=== PATIENT | male | born 1985 | race Caucasian/White ===

== ENCOUNTER 2016-09-09 19:17 | Inpatient (IN) | payer MEDICARE, MEDICAID ==
[~2016-09-09] VITALS: Ht 170.2 cm; Wt 73.5 kg
[~2016-09-09 19:17] MED LIST: LURA40 PO
[2016-09-10 04:00] VITALS: BP 137/86
[2016-09-10] MEDS ORDERED: HALOPERIDOL 5 MG TABLET PO PRN (04:15)
[2016-09-10 05:42] VITALS: BP 126/87
[2016-09-10] MEDS ORDERED: INFLUENZA VIRUS VACCINE QVS 2016-17 (3YR+)/PF 60 MCG/0.5 ML SYRINGE IM ONE (05:45)
[2016-09-10 08:58] VITALS: BP 118/72
[2016-09-10] MEDS: NICOTINE 14 MG/24 HOUR PATCH TD SCH (09:00)
[2016-09-10 16:38] VITALS: BP 111/72
[2016-09-10] MEDS: LORazepam 2 MG TABLET PO PRN (18:33)
[2016-09-10] MEDS: RisperiDONE 1 MG TABLET PO SCH (20:21)
[2016-09-10] MEDS: ZOLPIDEM TARTRATE 10 MG TABLET PO PRN (20:22)
[2016-09-11 07:05] VITALS: BP 125/70
[2016-09-11 07:52] LABS: BASOPHILS % (AUTO) 0.7 % (0.0-2.0); EOSINOPHILS % (AUTO) 2.7 % (1.0-6.0); HEMATOCRIT 43.4 % (41-53); HEMOGLOBIN 14.5 g/dL (13.5-17.5); LYMPHOCYTES # (AUTO) 2.3 K/uL (1.0-4.8); MEAN CORPUSCULAR HEMOGLOBIN 32.5 pg (26.0-34.0); MEAN CORPUSCULAR HGB CONC 33.3 G/dL (31.0-37.0); MEAN CORPUSCULAR VOLUME 97 fL (80-100); MONOCYTES # (AUTO) 0.6 K/uL (0.1-1.0); MONOCYTES % (AUTO) 6.3 % (2.0-9.0); NEUTROPHILS # (AUTO) 6.3 K/uL (1.8-7.7); NEUTROPHILS % (AUTO) 66.3 % (40.0-70.0); PLATELET COUNT (AUTO) 344 K/uL (150-450); RED BLOOD CELL COUNT(AUTO) 4.45 MIL/uL (4.50-5.90); RED CELL DISTRIBUTION WIDTH 13.9 % (11.5-14.5); WHITE BLOOD COUNT (AUTO) 9.4 K/uL (4.5-11.0)
[2016-09-11 08:29] LABS: ALANINE AMINOTRANSFERASE 45 U/L (12-78); ALBUMIN 2.8 g/dL (3.4-5.0); ANION GAP 7 mmol/L (8-16); ASPARTATE AMINOTRANSFERASE 22 U/L (15-37); BILIRUBIN,TOTAL 0.3 mg/dL (0.1-1.0); CALCIUM, TOTAL 8.3 mg/dL (8.8-10.5); CARBON DIOXIDE 27 mmol/L (22-29); CHLORIDE 104 mmol/L (98-107); CREATININE 0.89 mg/dL (0.60-1.30); GLOMERULAR FILTR. RATE CALC > 60 mL/min (>60); POTASSIUM 4.6 mmol/L (3.5-5.1); SODIUM SERUM 138 mmol/L (136-145); TOTAL PROTEIN, SERUM 5.9 g/dL (6.4-8.2); UREA NITROGEN, BLOOD 12 mg/dL (7-18)
[2016-09-11 09:04] VITALS: BP 113/73
[2016-09-11] MEDS: LORazepam 2 MG TABLET PO PRN (09:21)
[2016-09-11] MEDS: NICOTINE 14 MG/24 HOUR PATCH TD SCH (09:22)
[2016-09-11 16:14] VITALS: BP 116/61
[2016-09-11] MEDS ORDERED: MAG HYDROX/AL HYDROX/SIMETH ES 30 ML SUSPENSION UDCUP PO PRN (20:00)
[2016-09-11] MEDS: RisperiDONE 1 MG TABLET PO SCH (20:41)
[2016-09-11] MEDS: ZOLPIDEM TARTRATE 10 MG TABLET PO PRN (21:21)
[2016-09-12 03:49] VITALS: BP 112/73
[2016-09-12] MEDS: LORazepam 2 MG TABLET PO PRN ×3 (03:50→14:02)
[2016-09-12] MEDS: NICOTINE 14 MG/24 HOUR PATCH TD SCH (08:36)
[2016-09-12 08:41] LABS: CHOL/HDL RATIO 2.4 (4.2-7.3); THYROID STIMULATING HORMONE 1.71 uIU/mL (0.36-3.74)
[2016-09-12 09:09] VITALS: BP 122/55
[2016-09-12 10:04] VITALS: BP 116/67
[2016-09-12 16:30] VITALS: BP 121/64
[2016-09-12] MEDS: RisperiDONE 1 MG TABLET PO SCH (20:32)
[2016-09-12] MEDS: ZOLPIDEM TARTRATE 10 MG TABLET PO PRN (21:20)
[2016-09-13 01:05] VITALS: BP 102/62
[2016-09-13] MEDS: LORazepam 2 MG TABLET PO PRN ×2 (01:33→09:05)
[2016-09-13 08:08] VITALS: BP 103/60
[2016-09-13] MEDS: NICOTINE 14 MG/24 HOUR PATCH TD SCH (09:05)
[2016-09-13] MEDS ORDERED: RISP2 PO (10:14)
== END 2016-09-13 14:30 | disposition short-term general hospital (02) | DRG 885 ==
LOC: B2X 09-10 04:40
PROC: 3E0234Z Introduction of Serum, Toxoid and Vaccine into Muscle, Percutaneous Approach (ICD-10-PCS; principal; 2016-09-10)
DX: F25.1 Schizoaffective disorder, depressive type (principal); R45.851 Suicidal ideations; F19.20 Other psychoactive substance dependence, uncomplicated; F20.0 Paranoid schizophrenia; F17.210 Nicotine dependence, cigarettes, uncomplicated; K43.9 Ventral hernia without obstruction or gangrene; Z23 Encounter for immunization; Z59.0 Homelessness; Z91.5 Personal history of self-harm; Z91.14 Patient's other noncompliance with medication regimen; Z79.899 Other long term (current) drug therapy
CPT/HCPCS: 84439; 84443; 87081; 90471

== ENCOUNTER 2016-09-18 18:30 | Inpatient (IN) | payer MEDICARE, MEDICAID ==
[~2016-09-18] VITALS: Ht 170.2 cm; Wt 73.5 kg
[~2016-09-18 18:30] MED LIST changes: -LURA40 PO; +RISP2 PO
[2016-09-18 18:40] VITALS: BP 129/76
[2016-09-18] MEDS ORDERED: HALOPERIDOL 5 MG TABLET PO PRN (20:00)
[2016-09-18] MEDS ORDERED: LORazepam 2 MG TABLET PO PRN (20:00)
[2016-09-18] MEDS ORDERED: ACETAMINOPHEN 325 MG TABLET PO PRN (20:45)
[2016-09-19] MEDS: ZOLPIDEM TARTRATE 10 MG TABLET PO PRN ×2 (02:24→21:29)
[2016-09-19 03:56] VITALS: BP 107/78
[2016-09-19 06:56] LABS: HEMATOCRIT 42.3 % (41-53); HEMOGLOBIN 14.1 g/dL (13.5-17.5); MEAN CORPUSCULAR HGB CONC 33.3 G/dL (31.0-37.0); MEAN CORPUSCULAR VOLUME 96 fL (80-100); PLATELET COUNT (AUTO) 376 K/uL (150-450); RED BLOOD CELL COUNT(AUTO) 4.41 MIL/uL (4.50-5.90); RED CELL DISTRIBUTION WIDTH 14.2 % (11.5-14.5); WHITE BLOOD COUNT (AUTO) 14.6 K/uL (4.5-11.0)
[2016-09-19 07:06] LABS: ALANINE AMINOTRANSFERASE 28 U/L (12-78); ALBUMIN 2.9 g/dL (3.4-5.0); ANION GAP 7 mmol/L (8-16); ASPARTATE AMINOTRANSFERASE 17 U/L (15-37); BILIRUBIN,TOTAL 0.5 mg/dL (0.1-1.0); CARBON DIOXIDE 25 mmol/L (22-29); CHLORIDE 103 mmol/L (98-107); CREATININE 0.84 mg/dL (0.60-1.30); GLOMERULAR FILTR. RATE CALC > 60 mL/min (>60); POTASSIUM 4.3 mmol/L (3.5-5.1); SODIUM SERUM 135 mmol/L (136-145); TOTAL PROTEIN, SERUM 6.2 g/dL (6.4-8.2); UREA NITROGEN, BLOOD 11 mg/dL (7-18)
[2016-09-19 08:30] VITALS: BP 123/85
[2016-09-19] MEDS: NICOTINE 7 MG/24 HOUR PATCH TD SCH (08:30)
[2016-09-19 08:49] LABS: BAND NEUTROPHILS % (MANUAL) 35 % (1-5); LYMPHOCYTES % (MANUAL) 8 % (22-44); RBC MORPHOLOGY COMMENT NORMAL RBC MORPH; TOTAL CELLS COUNTED 100
[2016-09-19 17:45] VITALS: BP 125/77
[2016-09-19] MEDS ORDERED: RisperiDONE 2 MG TABLET PO SCH (21:00)
[2016-09-20 06:26] VITALS: BP 105/76
[2016-09-20 08:30] VITALS: BP 128/71
[2016-09-20] MEDS: NICOTINE 7 MG/24 HOUR PATCH TD SCH (08:37)
[2016-09-20] MEDS ORDERED: LURA40 PO (13:51)
== END 2016-09-20 15:10 | disposition home or self-care (01) | DRG 885 ==
LOC: 3EX 18:30
PROVIDERS: ADMIT Psychiatry & Neurology Child & Adolescent Psychiatry
DX: F25.1 Schizoaffective disorder, depressive type (principal); R45.851 Suicidal ideations; K46.9 Unspecified abdominal hernia without obstruction or gangrene; D72.829 Elevated white blood cell count, unspecified; F12.90 Cannabis use, unspecified, uncomplicated; F17.210 Nicotine dependence, cigarettes, uncomplicated; Z71.41 Alcohol abuse counseling and surveillance of alcoholic; Z72.89 Other problems related to lifestyle; Z91.19 Patient's noncompliance with other medical treatment and regimen
CPT/HCPCS: 87081

== ENCOUNTER 2017-01-10 14:45 | Inpatient (IN) | payer MEDICARE, MEDICAID ==
[~2017-01-10] VITALS: Ht 167.6 cm; Wt 78.0 kg
[~2017-01-10 14:45] MED LIST changes: +LURA40 PO; -RISP2 PO
[2017-01-10] MEDS ORDERED: HALOPERIDOL LACTATE 5 MG/ML VIAL IM ONE (15:30)
[2017-01-10] MEDS ORDERED: LORazepam 2 MG/ML VIAL IM ONE (15:30)
[2017-01-10] MEDS ORDERED: DiphenhydrAMINE HCL 50 MG/ML VIAL IM ONE (15:30)
[2017-01-10 16:29] LABS: BASOPHILS % (AUTO) 0.1 % (0.0-2.0); EOSINOPHILS % (AUTO) 0.1 % (1.0-6.0); HEMATOCRIT 46.2 % (41-53); HEMOGLOBIN 15.7 g/dL (13.5-17.5); LYMPHOCYTES # (AUTO) 1.1 K/uL (1.0-4.8); LYMPHOCYTES % (AUTO) 6.8 % (22.0-44.0); MEAN CORPUSCULAR HEMOGLOBIN 31.9 pg (26.0-34.0); MEAN CORPUSCULAR HGB CONC 33.9 G/dL (31.0-37.0); MEAN CORPUSCULAR VOLUME 94 fL (80-100); MONOCYTES # (AUTO) 0.9 K/uL (0.1-1.0); MONOCYTES % (AUTO) 5.6 % (2.0-9.0); NEUTROPHILS # (AUTO) 14.2 K/uL (1.8-7.7); PLATELET COUNT (AUTO) 395 K/uL (150-450); RED BLOOD CELL COUNT(AUTO) 4.91 MIL/uL (4.50-5.90); WHITE BLOOD COUNT (AUTO) 16.3 K/uL (4.5-11.0)
[2017-01-10 16:38] LABS: ANION GAP 13 mmol/L (8-16); CALCIUM, TOTAL 9.3 mg/dL (8.8-10.5); CARBON DIOXIDE 23 mmol/L (22-29); CHLORIDE 101 mmol/L (98-107); CREATININE 1.45 mg/dL (0.60-1.30); GLOMERULAR FILTR. RATE CALC 57 mL/min (>60); POTASSIUM 3.3 mmol/L (3.5-5.1); SODIUM SERUM 137 mmol/L (136-145); UREA NITROGEN, BLOOD 14 mg/dL (7-18)
[2017-01-10 16:40] LABS: NEUTROPHILS % (AUTO) 87.4 % (40.0-70.0)
[2017-01-10 16:44] LABS: ALANINE AMINOTRANSFERASE 39 U/L (12-78); ALBUMIN 3.8 g/dL (3.4-5.0); ASPARTATE AMINOTRANSFERASE 19 U/L (15-37); TOTAL PROTEIN, SERUM 7.7 g/dL (6.4-8.2)
[2017-01-10] MEDS ORDERED: ZOLPIDEM TARTRATE 10 MG TABLET PO PRN (17:45)
[2017-01-10] MEDS ORDERED: POTASSIUM CHLORIDE 20 MEQ ER TABLET PO ONE (19:30)
[2017-01-10] MEDS: RisperiDONE 2 MG TABLET PO SCH (21:00)
[2017-01-10 21:41] VITALS: BP 125/81
[2017-01-11 08:13] VITALS: BP 100/55
[2017-01-11] MEDS: NEOMYCIN/BACITRACIN/POLYMYXIN B 30 GM OINTMENT TP SCH ×2 (09:15→17:24)
[2017-01-11 14:24] VITALS: BP 149/103
[2017-01-11] MEDS: LORazepam 2 MG TABLET PO PRN (17:22)
[2017-01-11] MEDS: HALOPERIDOL 5 MG TABLET PO PRN (17:23)
[2017-01-11] MEDS: RisperiDONE 2 MG TABLET PO SCH (21:10)
[2017-01-12 06:47] LABS: BASOPHILS % (AUTO) 0.4 % (0.0-2.0); EOSINOPHILS % (AUTO) 2.9 % (1.0-6.0); HEMATOCRIT 42.6 % (41-53); HEMOGLOBIN 14.5 g/dL (13.5-17.5); LYMPHOCYTES # (AUTO) 1.9 K/uL (1.0-4.8); MEAN CORPUSCULAR HEMOGLOBIN 32.5 pg (26.0-34.0); MEAN CORPUSCULAR HGB CONC 34.1 G/dL (31.0-37.0); MEAN CORPUSCULAR VOLUME 95 fL (80-100); MONOCYTES # (AUTO) 0.6 K/uL (0.1-1.0); MONOCYTES % (AUTO) 7.7 % (2.0-9.0); NEUTROPHILS # (AUTO) 4.9 K/uL (1.8-7.7); PLATELET COUNT (AUTO) 338 K/uL (150-450); RED BLOOD CELL COUNT(AUTO) 4.47 MIL/uL (4.50-5.90); RED CELL DISTRIBUTION WIDTH 14.6 % (11.5-14.5); WHITE BLOOD COUNT (AUTO) 7.7 K/uL (4.5-11.0)
[2017-01-12 07:17] LABS: ANION GAP 11 mmol/L (8-16); CALCIUM, TOTAL 8.7 mg/dL (8.8-10.5); CARBON DIOXIDE 23 mmol/L (22-29); CHLORIDE 105 mmol/L (98-107); CHOL/HDL RATIO 2.7 (4.2-7.3); GLOMERULAR FILTR. RATE CALC > 60 mL/min (>60); POTASSIUM 4.1 mmol/L (3.5-5.1); SODIUM SERUM 139 mmol/L (136-145); UREA NITROGEN, BLOOD 17 mg/dL (7-18)
[2017-01-12 08:25] VITALS: BP 100/64
[2017-01-12] MEDS: NEOMYCIN/BACITRACIN/POLYMYXIN B 30 GM OINTMENT TP SCH ×2 (09:10→16:43)
[2017-01-12] MEDS: LORazepam 2 MG TABLET PO PRN (16:21)
[2017-01-12] MEDS: HALOPERIDOL 5 MG TABLET PO PRN (16:21)
[2017-01-12 17:30] VITALS: BP 138/96
[2017-01-12] MEDS ORDERED: DiphenhydrAMINE HCL 50 MG/ML VIAL ONE (18:11)
[2017-01-12] MEDS ORDERED: DiphenhydrAMINE HCL 50 MG/ML VIAL IM ONE (18:15)
[2017-01-12] MEDS: RisperiDONE 2 MG TABLET PO SCH (20:40)
[2017-01-12] MEDS ORDERED: BENZTROPINE MESYLATE 1 MG TABLET PO SCH (21:00)
[2017-01-13 08:17] VITALS: BP 103/69
[2017-01-13] MEDS: NEOMYCIN/BACITRACIN/POLYMYXIN B 30 GM OINTMENT TP SCH ×2 (09:20→16:30)
[2017-01-13] MEDS ORDERED: DiphenhydrAMINE HCL 50 MG/ML VIAL IM ONE ×2 (12:00→14:00)
[2017-01-13] MEDS ORDERED: QUEtiapine FUMARATE 100 MG TABLET PO PRN (14:00)
[2017-01-13] MEDS ORDERED: LORazepam 2 MG/ML VIAL IM ONE (14:00)
[2017-01-13] MEDS ORDERED: HALOPERIDOL LACTATE 5 MG/ML VIAL IM ONE (14:00)
[2017-01-13 19:36] VITALS: BP 111/77
[2017-01-13] MEDS: ASENAPINE 5 MG SUBLINGUAL TABLET SL SCH (21:15)
[2017-01-14 08:15] VITALS: BP 113/78
[2017-01-14] MEDS: NEOMYCIN/BACITRACIN/POLYMYXIN B 30 GM OINTMENT TP SCH ×2 (08:46→17:49)
[2017-01-14 16:25] VITALS: BP 126/78
[2017-01-14] MEDS: ASENAPINE 5 MG SUBLINGUAL TABLET SL SCH (21:18)
[2017-01-15 01:01] VITALS: BP 114/73
[2017-01-15 08:08] VITALS: BP 109/55
[2017-01-15] MEDS: NEOMYCIN/BACITRACIN/POLYMYXIN B 30 GM OINTMENT TP SCH ×2 (08:41→16:07)
[2017-01-15] MEDS: LORazepam 2 MG TABLET PO PRN (14:19)
[2017-01-15 17:33] VITALS: BP 97/65
[2017-01-15] MEDS: ASENAPINE 5 MG SUBLINGUAL TABLET SL SCH (20:43)
[2017-01-16 00:05] VITALS: BP_SYST 100; BP_SYST 108; BP_DIAS 66
[2017-01-16 08:06] VITALS: BP 133/79
[2017-01-16] MEDS: NEOMYCIN/BACITRACIN/POLYMYXIN B 30 GM OINTMENT TP SCH (08:06)
[2017-01-16] MEDS ORDERED: ASEN5TAB6 SL (12:37)
== END 2017-01-16 14:30 | disposition home or self-care (01) | DRG 885 ==
LOC: EMS 14:50 → 3EC 19:36
DX: F20.0 Paranoid schizophrenia (principal); F17.210 Nicotine dependence, cigarettes, uncomplicated; K43.9 Ventral hernia without obstruction or gangrene; S80.211A Abrasion, right knee, initial encounter; F15.90 Other stimulant use, unspecified, uncomplicated; F25.0 Schizoaffective disorder, bipolar type; X58.XXXA Exposure to other specified factors, initial encounter; Z59.0 Homelessness; Z88.8 Allergy status to other drugs, medicaments and biological substances; Z79.899 Other long term (current) drug therapy; Z91.5 Personal history of self-harm; Z78.1 Physical restraint status; Z72.89 Other problems related to lifestyle; Z71.51 Drug abuse counseling and surveillance of drug abuser; Y93.89 Activity, other specified; Y92.89 Other specified places as the place of occurrence of the external cause; Y99.8 Other external cause status
CPT/HCPCS: 51702; 96372; 99285; G0480; J1200; J1630; J2060

== ENCOUNTER 2018-01-30 21:04 | Emergency (ER) | payer MEDICARE, OTHER ==
[~2018-01-30] VITALS: Ht 167.6 cm; Wt 0.8 kg
[~2018-01-30 21:04] MED LIST changes: +BENZ1TAB10 PO; -LURA40 PO; +PALI234D IM; +PALI6 PO
[2018-01-30] MEDS ORDERED: LURA20TA PO (22:13)
[2018-01-30] MEDS ORDERED: HALOPERIDOL LACTATE 5 MG/ML VIAL ONE (22:37)
[2018-01-30] MEDS ORDERED: DiphenhydrAMINE HCL 50 MG/ML VIAL ONE (22:37)
[2018-01-30] MEDS ORDERED: LORazepam 2 MG/ML VIAL ONE (22:37)
[2018-01-30] MEDS ORDERED: HALOPERIDOL LACTATE 5 MG/ML VIAL IM ONE (22:45)
[2018-01-30] MEDS ORDERED: DiphenhydrAMINE HCL 50 MG/ML VIAL IM ONE (22:45)
[2018-01-30] MEDS ORDERED: LORazepam 2 MG/ML VIAL IM ONE (22:45)
[2018-01-31 05:23] VITALS: BP 120/65
== END 2018-01-31 05:38 | disposition home or self-care (01) ==
LOC: EMS 21:05
DX: F29 Unspecified psychosis not due to a substance or known physiological condition (principal); F20.9 Schizophrenia, unspecified; F15.10 Other stimulant abuse, uncomplicated; F17.210 Nicotine dependence, cigarettes, uncomplicated; Z88.8 Allergy status to other drugs, medicaments and biological substances
CPT/HCPCS: 96372; 99285; J1200; J1630; J2060

== ENCOUNTER 2018-06-06 01:39 | Inpatient (IN) | payer MEDICARE, MEDICAID ==
[~2018-06-06] VITALS: Ht 172.7 cm; Wt 67.1 kg
[~2018-06-06 01:39] MED LIST changes: -BENZ1TAB10 PO; +LURA20TA PO; -PALI234D IM; -PALI6 PO
[2018-06-06] MEDS ORDERED: HALOPERIDOL LACTATE 5 MG/ML VIAL IM ONE (02:15)
[2018-06-06] MEDS ORDERED: DiphenhydrAMINE HCL 50 MG/ML VIAL IM ONE (02:15)
[2018-06-06] MEDS ORDERED: LORazepam 2 MG/ML VIAL IM ONE (02:15)
[2018-06-06 04:16] LABS: BASOPHILS % (AUTO) 0.6 % (0.0-2.0); EOSINOPHILS % (AUTO) 0.2 % (1.0-6.0); HEMATOCRIT 39.2 % (41-53); HEMOGLOBIN 13.4 g/dL (13.5-17.5); LYMPHOCYTES # (AUTO) 2.1 K/uL (1.0-4.8); LYMPHOCYTES % (AUTO) 17.5 % (22.0-44.0); MEAN CORPUSCULAR HGB CONC 34.2 G/dL (31.0-37.0); MEAN CORPUSCULAR VOLUME 94 fL (80-100); MONOCYTES # (AUTO) 0.7 K/uL (0.1-1.0); MONOCYTES % (AUTO) 6.1 % (2.0-9.0); NEUTROPHILS # (AUTO) 8.9 K/uL (1.8-7.7); NEUTROPHILS % (AUTO) 75.6 % (40.0-70.0); PLATELET COUNT (AUTO) 412 K/uL (150-450); RED BLOOD CELL COUNT(AUTO) 4.19 MIL/uL (4.50-5.90); RED CELL DISTRIBUTION WIDTH 13.2 % (11.5-14.5)
[2018-06-06 04:24] LABS: ANION GAP 4 mmol/L (8-16); CALCIUM, TOTAL 8.7 mg/dL (8.8-10.5); CARBON DIOXIDE 28 mmol/L (22-29); CHLORIDE 107 mmol/L (98-107); CREATININE 1.38 mg/dL (0.60-1.30); GLOMERULAR FILTR. RATE CALC 60 mL/min (>60); GLUCOSE,RANDOM 89 mg/dL (70-110); POTASSIUM 3.6 mmol/L (3.5-5.1); SODIUM SERUM 139 mmol/L (136-145); UREA NITROGEN, BLOOD 19 mg/dL (7-18)
[2018-06-06 04:29] LABS: ALANINE AMINOTRANSFERASE 22 U/L (12-78); ALBUMIN 3.5 g/dL (3.4-5.0); ALKALINE PHOSPHATASE 76 U/L (46-116); ASPARTATE AMINOTRANSFERASE 18 U/L (15-37); BILIRUBIN,TOTAL 0.4 mg/dL (0.1-1.0); TOTAL PROTEIN, SERUM 6.8 g/dL (6.4-8.2)
[2018-06-06 08:45] VITALS: BP 117/87
[2018-06-06] MEDS ORDERED: PETROLATUM,WHITE 71 GM JELLY TP PRN (14:30)
[2018-06-06] MEDS ORDERED: DOCUSATE SODIUM 100 MG CAPSULE PO PRN (14:30)
[2018-06-06] MEDS ORDERED: ACETAMINOPHEN 325 MG TABLET PO PRN (14:30)
[2018-06-06] MEDS ORDERED: MAGNESIUM HYDROXIDE SUSPENSION 30 ML UDCUP PO PRN (14:30)
[2018-06-06] MEDS ORDERED: ONDANSETRON HCL 4 MG TABLET PO PRN (14:30)
[2018-06-06] MEDS ORDERED: ALBUTEROL SULFATE HFA 90 MCG/PUFF 8 GM INHALER IH PRN (14:30)
[2018-06-06] MEDS ORDERED: MAG HYDROX/AL HYDROX/SIMETH ES 30 ML SUSPENSION UDCUP PO PRN (14:30)
[2018-06-06] MEDS ORDERED: IBUPROFEN 400 MG TABLET PO PRN (14:30)
[2018-06-06] MEDS ORDERED: GuaiFENesin/D-METHORPHAN [SUGAR-FREE] 200-20MG/10 ML SYRUP UDCUP PO PRN (14:30)
[2018-06-06] MEDS ORDERED: CloNIDine HCL 0.1 MG TABLET PO PRN (14:30)
[2018-06-06] MEDS ORDERED: NICOTINE 14 MG/24 HOUR PATCH TD PRN (14:30)
[2018-06-06] MEDS ORDERED: LOPERAMIDE HCL 2 MG CAPSULE PO PRN (14:30)
[2018-06-06 16:00] VITALS: BP 118/64
[2018-06-06] MEDS: PALIPERIDONE 3 MG ER TABLET PO SCH (20:27)
[2018-06-06] MEDS: BENZTROPINE MESYLATE 1 MG TABLET PO SCH (20:27)
[2018-06-07 06:50] VITALS: BP 108/63
[2018-06-07 08:03] VITALS: BP 130/74
[2018-06-07 08:09] LABS: CHOL/HDL RATIO 1.6 (4.2-7.3)
[2018-06-07] MEDS: PALIPERIDONE 3 MG ER TABLET PO SCH ×2 (09:08→21:06)
[2018-06-07] MEDS: BENZTROPINE MESYLATE 1 MG TABLET PO SCH ×2 (09:08→21:06)
[2018-06-07] MEDS: LORazepam 2 MG TABLET PO PRN (09:08)
[2018-06-07 16:08] VITALS: BP 115/62
[2018-06-08 00:55] VITALS: BP 108/67
[2018-06-08 08:03] VITALS: BP 110/65
[2018-06-08] MEDS: BENZTROPINE MESYLATE 1 MG TABLET PO SCH ×2 (08:04→21:18)
[2018-06-08] MEDS: LORazepam 2 MG TABLET PO PRN (08:04)
[2018-06-08] MEDS: PALIPERIDONE 3 MG ER TABLET PO SCH ×2 (08:04→21:18)
[2018-06-08 09:06] LABS: % IRON SATURATION 30.6 % (30-44)
[2018-06-08 16:00] VITALS: BP 112/65
[2018-06-09 01:10] VITALS: BP 121/69
[2018-06-09 08:04] VITALS: BP 105/59
[2018-06-09] MEDS: BENZTROPINE MESYLATE 1 MG TABLET PO SCH ×2 (08:17→20:57)
[2018-06-09] MEDS: PALIPERIDONE 3 MG ER TABLET PO SCH ×2 (08:17→20:57)
[2018-06-09 08:34] LABS: BASOPHILS % (AUTO) 0.7 % (0.0-2.0); EOSINOPHILS % (AUTO) 2.3 % (1.0-6.0); HEMATOCRIT 39.6 % (41-53); HEMOGLOBIN 13.9 g/dL (13.5-17.5); LYMPHOCYTES # (AUTO) 1.8 K/uL (1.0-4.8); LYMPHOCYTES % (AUTO) 24.9 % (22.0-44.0); MEAN CORPUSCULAR HGB CONC 35.1 G/dL (31.0-37.0); MEAN CORPUSCULAR VOLUME 94 fL (80-100); MONOCYTES # (AUTO) 0.3 K/uL (0.1-1.0); MONOCYTES % (AUTO) 4.7 % (2.0-9.0); NEUTROPHILS # (AUTO) 4.9 K/uL (1.8-7.7); NEUTROPHILS % (AUTO) 67.4 % (40.0-70.0); PLATELET COUNT (AUTO) 334 K/uL (150-450); RED BLOOD CELL COUNT(AUTO) 4.22 MIL/uL (4.50-5.90)
[2018-06-09 16:03] VITALS: BP 111/70
[2018-06-10 01:58] VITALS: BP 118/78
[2018-06-10 08:03] VITALS: BP 114/81
[2018-06-10] MEDS: PALIPERIDONE 3 MG ER TABLET PO SCH ×2 (08:37→20:20)
[2018-06-10] MEDS: BENZTROPINE MESYLATE 1 MG TABLET PO SCH ×2 (08:37→20:20)
[2018-06-10] MEDS: LORazepam 2 MG TABLET PO PRN (14:30)
[2018-06-10 16:31] VITALS: BP 115/69
[2018-06-10] MEDS: HALOPERIDOL 5 MG TABLET PO PRN (17:50)
[2018-06-11 03:02] VITALS: BP 102/65
[2018-06-11 08:03] VITALS: BP 134/73
[2018-06-11] MEDS: LORazepam 2 MG TABLET PO PRN ×3 (08:20→21:23)
[2018-06-11] MEDS: PALIPERIDONE 3 MG ER TABLET PO SCH (08:20)
[2018-06-11] MEDS: BENZTROPINE MESYLATE 1 MG TABLET PO SCH ×2 (08:20→20:49)
[2018-06-11 16:00] VITALS: BP 116/70
[2018-06-11] MEDS: PALIPERIDONE 6 MG ER TABLET PO SCH (20:49)
[2018-06-11] MEDS: ZOLPIDEM TARTRATE 10 MG TABLET PO PRN (20:49)
[2018-06-12 02:47] VITALS: BP 122/62
[2018-06-12 08:03] VITALS: BP 127/61
[2018-06-12] MEDS: BENZTROPINE MESYLATE 1 MG TABLET PO SCH ×2 (08:45→20:37)
[2018-06-12] MEDS: LORazepam 2 MG TABLET PO PRN ×2 (11:14→16:37)
[2018-06-12 16:00] VITALS: BP 114/64
[2018-06-12] MEDS: HALOPERIDOL 5 MG TABLET PO PRN (16:38)
[2018-06-12] MEDS: PALIPERIDONE 6 MG ER TABLET PO SCH (20:38)
[2018-06-12] MEDS: ZOLPIDEM TARTRATE 10 MG TABLET PO PRN (20:38)
[2018-06-13 03:34] VITALS: BP 112/78
[2018-06-13 08:11] VITALS: BP 110/71
[2018-06-13] MEDS: BENZTROPINE MESYLATE 1 MG TABLET PO SCH ×2 (08:27→20:35)
[2018-06-13] MEDS: LORazepam 2 MG TABLET PO PRN ×2 (14:58→20:35)
[2018-06-13 16:00] VITALS: BP 108/66
[2018-06-13] MEDS: PALIPERIDONE 6 MG ER TABLET PO SCH (20:35)
[2018-06-13] MEDS: ZOLPIDEM TARTRATE 10 MG TABLET PO PRN (20:35)
[2018-06-14 02:37] VITALS: BP 101/87
[2018-06-14 08:05] VITALS: BP 106/72
[2018-06-14] MEDS: LORazepam 2 MG TABLET PO PRN ×2 (08:33→20:32)
[2018-06-14] MEDS: BENZTROPINE MESYLATE 1 MG TABLET PO SCH ×2 (08:33→20:32)
[2018-06-14 16:25] VITALS: BP 102/42
[2018-06-14] MEDS: PALIPERIDONE 3 MG ER TABLET PO SCH (20:31)
[2018-06-14] MEDS: ZOLPIDEM TARTRATE 10 MG TABLET PO PRN (20:32)
[2018-06-14] MEDS: DIVALPROEX SODIUM 500 MG DR TABLET PO SCH (20:32)
[2018-06-15 00:02] VITALS: BP 111/70
[2018-06-15] MEDS: LORazepam 2 MG TABLET PO PRN ×3 (04:46→16:55)
[2018-06-15 08:02] VITALS: BP 108/64
[2018-06-15] MEDS: BENZTROPINE MESYLATE 1 MG TABLET PO SCH ×2 (08:05→20:54)
[2018-06-15] MEDS: DIVALPROEX SODIUM 500 MG DR TABLET PO SCH ×2 (08:05→20:54)
[2018-06-15 08:39] LABS: ANION GAP 4 mmol/L (8-16); CALCIUM, TOTAL 8.3 mg/dL (8.8-10.5); CARBON DIOXIDE 33 mmol/L (22-29); CHLORIDE 102 mmol/L (98-107); CREATININE 0.94 mg/dL (0.60-1.30); GLOMERULAR FILTR. RATE CALC > 60 mL/min (>60); GLUCOSE,RANDOM 89 mg/dL (70-110); POTASSIUM 4.6 mmol/L (3.5-5.1); SODIUM SERUM 139 mmol/L (136-145); UREA NITROGEN, BLOOD 15 mg/dL (7-18)
[2018-06-15] MEDS ORDERED: HALOPERIDOL LACTATE 5 MG/ML VIAL ONE (13:20)
[2018-06-15] MEDS ORDERED: LORazepam 2 MG/ML VIAL ONE (13:20)
[2018-06-15] MEDS ORDERED: DiphenhydrAMINE HCL 50 MG/ML VIAL ONE (13:20)
[2018-06-15] MEDS ORDERED: DiphenhydrAMINE HCL 50 MG/ML VIAL IM ONE (13:30)
[2018-06-15] MEDS ORDERED: HALOPERIDOL LACTATE 5 MG/ML VIAL IM ONE (13:30)
[2018-06-15] MEDS ORDERED: LORazepam 2 MG/ML VIAL IM ONE (13:30)
[2018-06-15 16:14] VITALS: BP 110/68
[2018-06-15] MEDS: PALIPERIDONE 3 MG ER TABLET PO SCH (20:54)
[2018-06-16 04:46] VITALS: BP 115/70
[2018-06-16 08:05] VITALS: BP 112/70
[2018-06-16] MEDS: DIVALPROEX SODIUM 500 MG DR TABLET PO SCH ×2 (08:29→21:19)
[2018-06-16] MEDS: BENZTROPINE MESYLATE 1 MG TABLET PO SCH ×2 (08:29→21:19)
[2018-06-16 16:10] VITALS: BP 115/58
[2018-06-16] MEDS: LORazepam 2 MG TABLET PO PRN (17:09)
[2018-06-16] MEDS: HALOPERIDOL 5 MG TABLET PO PRN (17:09)
[2018-06-16] MEDS: PALIPERIDONE 3 MG ER TABLET PO SCH (21:19)
[2018-06-17 00:11] VITALS: BP 124/63
[2018-06-17] MEDS: LORazepam 2 MG TABLET PO PRN ×3 (05:04→16:23)
[2018-06-17] MEDS: HALOPERIDOL 5 MG TABLET PO PRN ×3 (05:04→16:23)
[2018-06-17 08:08] VITALS: BP 116/68
[2018-06-17] MEDS: DIVALPROEX SODIUM 500 MG DR TABLET PO SCH ×2 (08:44→20:15)
[2018-06-17] MEDS: BENZTROPINE MESYLATE 1 MG TABLET PO SCH ×2 (08:44→20:15)
[2018-06-17 16:03] VITALS: BP 111/61
[2018-06-17] MEDS: PALIPERIDONE 3 MG ER TABLET PO SCH (20:15)
[2018-06-18 00:51] VITALS: BP 104/64
[2018-06-18 08:02] VITALS: BP 112/64
[2018-06-18] MEDS ORDERED: DIVA-78 PO ×2 (09:05→09:27)
[2018-06-18] MEDS ORDERED: LURA40 PO ×2 (09:05→09:27)
[2018-06-18] MEDS: DIVALPROEX SODIUM 500 MG DR TABLET PO SCH (09:24)
[2018-06-18] MEDS: BENZTROPINE MESYLATE 1 MG TABLET PO SCH (09:24)
== END 2018-06-18 10:20 | disposition home or self-care (01) | DRG 885 ==
LOC: EMS 01:39 → B3A 03:00
DX: F25.1 Schizoaffective disorder, depressive type (principal); F15.20 Other stimulant dependence, uncomplicated; N17.9 Acute kidney failure, unspecified; D64.9 Anemia, unspecified; F12.90 Cannabis use, unspecified, uncomplicated; Z88.8 Allergy status to other drugs, medicaments and biological substances; F17.210 Nicotine dependence, cigarettes, uncomplicated; F10.20 Alcohol dependence, uncomplicated; Z79.899 Other long term (current) drug therapy; F19.10 Other psychoactive substance abuse, uncomplicated; Z71.51 Drug abuse counseling and surveillance of drug abuser; Z28.21 Immunization not carried out because of patient refusal; Z71.6 Tobacco abuse counseling
CPT/HCPCS: 82728; 83540; 83550; 87081; 90686; 96372; G0480; J1200; J1630; J2060

== ENCOUNTER 2018-06-25 12:04 | Emergency (ER) | payer MEDICARE, MEDICAID ==
[~2018-06-25 12:04] MED LIST changes: +DIVA-78 PO; -LURA20TA PO; +LURA40 PO
== END 2018-06-25 13:29 | disposition left against medical advice (07) ==
LOC: EMS 12:06
DX: Z00.00 Encounter for general adult medical examination without abnormal findings (principal); Z53.21 Procedure and treatment not carried out due to patient leaving prior to being seen by health care provider

== ENCOUNTER 2019-05-09 13:34 | Inpatient (IN) | payer MEDICARE, OTHER ==
[~2019-05-09] VITALS: Ht 170.2 cm; Wt 74.4 kg
[2019-05-09] MEDS ORDERED: LORazepam 2 MG/ML VIAL IM ONE (15:45)
[2019-05-09] MEDS ORDERED: DiphenhydrAMINE HCL 50 MG/ML VIAL IM ONE (15:45)
[2019-05-09] MEDS ORDERED: HALOPERIDOL LACTATE 5 MG/ML VIAL IM ONE (15:45)
[2019-05-09] MEDS ORDERED: HALOPERIDOL 5 MG TABLET PO PRN (16:30)
[2019-05-09] MEDS ORDERED: ZOLPIDEM TARTRATE 10 MG TABLET PO PRN (16:30)
[2019-05-09] MEDS ORDERED: LORazepam 2 MG TABLET PO PRN (16:30)
[2019-05-09 16:43] LABS: BASOPHILS % (AUTO) 1.3 % (0.0-2.0); EOSINOPHILS % (AUTO) 2.3 % (1.0-6.0); HEMOGLOBIN 13.7 g/dL (13.5-17.5); LYMPHOCYTES # (AUTO) 1.9 K/uL (1.0-4.8); LYMPHOCYTES % (AUTO) 30.3 % (22.0-44.0); MEAN CORPUSCULAR HEMOGLOBIN 32.2 pg (26.0-34.0); MEAN CORPUSCULAR HGB CONC 34.4 G/dL (31.0-37.0); MEAN CORPUSCULAR VOLUME 94 fL (80-100); MONOCYTES # (AUTO) 0.5 K/uL (0.1-1.0); MONOCYTES % (AUTO) 7.8 % (2.0-9.0); NEUTROPHILS # (AUTO) 3.7 K/uL (1.8-7.7); NEUTROPHILS % (AUTO) 58.3 % (40.0-70.0); PLATELET COUNT (AUTO) 368 K/uL (150-450); RED BLOOD CELL COUNT(AUTO) 4.27 MIL/uL (4.50-5.90); RED CELL DISTRIBUTION WIDTH 13.7 % (11.5-14.5)
[2019-05-09 17:21] LABS: ALANINE AMINOTRANSFERASE 16 U/L (12-78); ALKALINE PHOSPHATASE 95 U/L (46-116); ASPARTATE AMINOTRANSFERASE 16 U/L (15-37); BILIRUBIN,TOTAL 0.3 mg/dL (0.1-1.0); CALCIUM, TOTAL 9.3 mg/dL (8.8-10.5); CREATININE 0.99 mg/dL (0.60-1.30); GLOMERULAR FILTR. RATE CALC > 60 mL/min (>60); GLUCOSE,RANDOM 103 mg/dL (70-110); TOTAL PROTEIN, SERUM 7.2 g/dL (6.4-8.2); UREA NITROGEN, BLOOD 16 mg/dL (7-18)
[2019-05-09 17:27] LABS: POTASSIUM 3.6 mmol/L (3.5-5.1); SODIUM SERUM 139 mmol/L (136-145)
[2019-05-09 17:28] LABS: ANION GAP 8 mmol/L (8-16); CARBON DIOXIDE 26 mmol/L (22-29); CHLORIDE 105 mmol/L (98-107)
[2019-05-09 17:33] LABS: ALBUMIN 3.5 g/dL (3.4-5.0)
[2019-05-09 19:33] VITALS: BP 102/63
[2019-05-10] MEDS ORDERED: INFLUENZA VIRUS VACCINE QVS 2019-20 (3YR+)/PF 60 MCG/0.5 ML SYRINGE IM ONE (07:45)
[2019-05-10] MEDS ORDERED: ALBUTEROL SULFATE HFA 90 MCG/PUFF 8 GM INHALER IH PRN (13:30)
[2019-05-10] MEDS ORDERED: IBUPROFEN 400 MG TABLET PO PRN (13:30)
[2019-05-10] MEDS ORDERED: DOCUSATE SODIUM 100 MG CAPSULE PO PRN (13:30)
[2019-05-10] MEDS ORDERED: ACETAMINOPHEN 325 MG TABLET PO PRN (13:30)
[2019-05-10] MEDS ORDERED: CloNIDine HCL 0.1 MG TABLET PO PRN (13:30)
[2019-05-10] MEDS ORDERED: ONDANSETRON HCL 4 MG TABLET PO PRN (13:30)
[2019-05-10] MEDS ORDERED: MAG HYDROX/AL HYDROX/SIMETH ES 30 ML SUSPENSION UDCUP PO PRN (13:30)
[2019-05-10] MEDS ORDERED: LOPERAMIDE HCL 2 MG CAPSULE PO PRN (13:30)
[2019-05-10] MEDS ORDERED: MAGNESIUM HYDROXIDE SUSPENSION 30 ML UDCUP PO PRN (13:30)
[2019-05-10] MEDS ORDERED: NICOTINE 14 MG/24 HOUR PATCH TD PRN (13:30)
[2019-05-10] MEDS ORDERED: PETROLATUM,WHITE 28 GM JELLY TP PRN (13:30)
[2019-05-10] MEDS ORDERED: GuaiFENesin/D-METHORPHAN [SUGAR-FREE] 200-20MG/10 ML SYRUP UDCUP PO PRN (13:30)
[2019-05-10] MEDS: LURASIDONE HCL 80 MG TABLET PO SCH (16:48)
[2019-05-10] MEDS: DIVALPROEX SODIUM 500 MG DR TABLET PO SCH (20:38)
[2019-05-11] MEDS: DIVALPROEX SODIUM 500 MG DR TABLET PO SCH ×2 (08:33→20:32)
[2019-05-11] MEDS: FLUoxetine HCL 20 MG CAPSULE PO SCH (13:46)
[2019-05-11] MEDS: LURASIDONE HCL 80 MG TABLET PO SCH (17:25)
[2019-05-12 08:49] VITALS: BP 110/75
[2019-05-12] MEDS: FLUoxetine HCL 20 MG CAPSULE PO SCH (09:14)
[2019-05-12] MEDS: DIVALPROEX SODIUM 500 MG DR TABLET PO SCH ×2 (09:14→20:15)
[2019-05-12 16:30] VITALS: BP 126/85
[2019-05-12] MEDS: LURASIDONE HCL 80 MG TABLET PO SCH (16:37)
[2019-05-13] MEDS: DIVALPROEX SODIUM 500 MG DR TABLET PO SCH (10:26)
[2019-05-13] MEDS: FLUoxetine HCL 20 MG CAPSULE PO SCH (10:26)
[2019-05-13] MEDS ORDERED: DIVA250T4 PO (11:58)
[2019-05-13] MEDS ORDERED: LURA80 PO (11:59)
[2019-05-13] MEDS ORDERED: FLUO-191 PO (11:59)
[2019-05-13 14:28] VITALS: BP 115/83
== END 2019-05-13 14:00 | disposition home or self-care (01) | DRG 885 ==
LOC: EMS 13:35 → 3EC 18:06
PROVIDERS: ADMIT Psychiatry & Neurology Psychiatry; ATTEND Psychiatry & Neurology Psychiatry
DX: F25.0 Schizoaffective disorder, bipolar type (principal); D64.9 Anemia, unspecified; E78.5 Hyperlipidemia, unspecified; F10.10 Alcohol abuse, uncomplicated; F12.90 Cannabis use, unspecified, uncomplicated; F17.210 Nicotine dependence, cigarettes, uncomplicated; F19.10 Other psychoactive substance abuse, uncomplicated; F41.9 Anxiety disorder, unspecified; Z59.0 Homelessness; Z88.8 Allergy status to other drugs, medicaments and biological substances; Z71.6 Tobacco abuse counseling; Z71.41 Alcohol abuse counseling and surveillance of alcoholic; Z71.51 Drug abuse counseling and surveillance of drug abuser; Z78.1 Physical restraint status; Z91.14 Patient's other noncompliance with medication regimen; Z23 Encounter for immunization
CPT/HCPCS: 90686; 96372; 99406; G0480

== ENCOUNTER 2025-02-21 22:36 | Inpatient (IN) | payer BC, MEDICAID ==
[~2025-02-21] VITALS: Ht 167.6 cm; Wt 83.0 kg
[~2025-02-21 22:36] MED LIST changes: +DIVA-159 PO; -DIVA-78 PO; +FLUO-177 PO; -LURA40 PO; +LURA80TA2 PO
[2025-02-21 22:43] VITALS: O2SAT 98
[2025-02-21 22:58] LABS: PLATELET COUNT (AUTO) 380 K/uL (150-450); RED BLOOD CELL COUNT(AUTO) 4.55 MIL/uL (4.50-5.90); RED CELL DISTRIBUTION WIDTH 13.8 % (11.5-14.5); WHITE BLOOD COUNT (AUTO) 10.5 K/uL (4.5-11.0)
[2025-02-21 23:06] LABS: CALCIUM, TOTAL 8.4 mg/dL (8.8-10.5); CREATININE 1.02 mg/dL (0.60-1.30); GLOMERULAR FILTR. RATE CALC > 60 mL/min (>60); GLUCOSE,RANDOM 99 mg/dL (70-110); SODIUM SERUM 136 mmol/L (136-145); UREA NITROGEN, BLOOD 11 mg/dL (7-18)
[2025-02-22 00:27] LABS: COVID AG,FIA SOURCE NASAL SWAB
[2025-02-22 00:32] LABS: APPEARANCE,URINE CLEAR (CLEAR); GLUCOSE, URINE (UA) NEGATIVE (NEGATIVE); LEUKOCYTE ESTERASE ,URINE NEGATIVE (NEGATIVE); NITRATE,URINE NEGATIVE (NEGATIVE); OCCULT BLOOD,URINE NEGATIVE (NEGATIVE); PH,URINE DRUG SCREEN 6.0 (5.0-8.0); SPECIFIC GRAVITIY, URINE 1.006 (1.003-1.030)
[2025-02-22 00:39] LABS: AMPHET/METH SCREEN,URINE NEGATIVE (NEGATIVE); BARBITURATE SCREEN, URINE NEGATIVE (NEGATIVE); CANNABINOID SCREEN,URINE NEGATIVE (NEGATIVE); COCAINE SCREEN,URINE NEGATIVE (NEGATIVE); METHADONE SCREEN, URINE NEGATIVE (NEGATIVE)
[2025-02-22 00:41] LABS: ALCOHOL, URINE DRUG SCREEN NEGATIVE (NEGATIVE)
[2025-02-22 00:47] LABS: SARS-COV2 (COVID) ANTIGEN,FIA Negative (Negative)
[2025-02-22 03:52] VITALS: BP 102/84; PULSE 88; RESP 18; O2SAT 100
[2025-02-22 08:45] VITALS: BP 95/68; PULSE 67; RESP 17; TEMP 98.3; O2SAT 95
[2025-02-22] MEDS ORDERED: PETROLATUM,WHITE 28 GM JELLY TP PRN (11:30)
[2025-02-22] MEDS ORDERED: IBUPROFEN 400 MG TABLET PO PRN (11:30)
[2025-02-22] MEDS ORDERED: MAG HYDROX/ALUMINUM HYD/SIMETH ES 30 ML SUSPENSION UDCUP PO PRN (11:30)
[2025-02-22] MEDS ORDERED: ONDANSETRON 4 MG TABLET PO PRN (11:30)
[2025-02-22] MEDS ORDERED: DOCUSATE SODIUM 100 MG CAPSULE PO PRN (11:30)
[2025-02-22] MEDS ORDERED: MAGNESIUM HYDROXIDE SUSPENSION 30 ML UDCUP PO PRN (11:30)
[2025-02-22] MEDS ORDERED: GuaiFENesin/D-METHORPHAN [SUGAR-FREE] 200-20MG/10 ML SYRUP UDCUP PO PRN (11:30)
[2025-02-22] MEDS ORDERED: ALBUTEROL SULFATE HFA 90 MCG/PUFF 8 GM INHALER IH PRN (11:30)
[2025-02-22] MEDS ORDERED: ACETAMINOPHEN 325 MG TABLET PO PRN (11:30)
[2025-02-22] MEDS ORDERED: LOPERAMIDE HCL 2 MG CAPSULE PO PRN (11:30)
[2025-02-22] MEDS: DIVALPROEX SODIUM 500 MG DR TABLET PO SCH (12:21)
[2025-02-22] MEDS: NICOTINE 14 MG/24 HOUR PATCH TD PRN (12:22)
[2025-02-22] MEDS: LURASIDONE HCL 80 MG TABLET PO SCH (17:04)
[2025-02-22] MEDS: ZOLPIDEM TARTRATE 10 MG TABLET PO PRN (20:17)
[2025-02-22 20:19] VITALS: BP 126/94; PULSE 78; RESP 18; TEMP 98.2; O2SAT 82
[2025-02-23 08:15] LABS: PLATELET COUNT (AUTO) 327 K/uL (150-450); RED BLOOD CELL COUNT(AUTO) 4.37 MIL/uL (4.50-5.90); RED CELL DISTRIBUTION WIDTH 13.6 % (11.5-14.5); WHITE BLOOD COUNT (AUTO) 7.7 K/uL (4.5-11.0)
[2025-02-23 08:18] VITALS: BP 109/81; PULSE 92; RESP 16; TEMP 98.8; O2SAT 98
[2025-02-23 08:48] LABS: ASPARTATE AMINOTRANSFERASE 18 U/L (15-37); CALCIUM, TOTAL 7.9 mg/dL (8.8-10.5); CHOL/HDL RATIO 2.4 (4.2-7.3); CREATININE 0.78 mg/dL (0.60-1.30); GLOMERULAR FILTR. RATE CALC > 60 mL/min (>60); GLUCOSE,RANDOM 84 mg/dL (70-110); LDL CHOL (CALC.) 77 mg/dL (0-130); SODIUM SERUM 140 mmol/L (136-145); TOTAL PROTEIN, SERUM 6.5 g/dL (6.4-8.2); UREA NITROGEN, BLOOD 11 mg/dL (7-18)
[2025-02-23 09:15] LABS: APPEARANCE,URINE HAZY (CLEAR); GLUCOSE, URINE (UA) NEGATIVE (NEGATIVE); LEUKOCYTE ESTERASE ,URINE NEGATIVE (NEGATIVE); NITRATE,URINE NEGATIVE (NEGATIVE); OCCULT BLOOD,URINE NEGATIVE (NEGATIVE); PH,URINE DRUG SCREEN 7.0 (5.0-8.0); SPECIFIC GRAVITIY, URINE 1.022 (1.003-1.030)
[2025-02-23 09:24] LABS: ALCOHOL, URINE DRUG SCREEN NEGATIVE (NEGATIVE); AMPHET/METH SCREEN,URINE NEGATIVE (NEGATIVE); BARBITURATE SCREEN, URINE NEGATIVE (NEGATIVE); CANNABINOID SCREEN,URINE NEGATIVE (NEGATIVE); COCAINE SCREEN,URINE NEGATIVE (NEGATIVE); METHADONE SCREEN, URINE NEGATIVE (NEGATIVE)
[2025-02-23] MEDS: CALCIUM CIT/VITAMIN D3 200 MG-250 UNITS[6.25MCG] TABLET PO SCH (09:30)
[2025-02-23 20:30] VITALS: BP 113/82; PULSE 68; RESP 17; TEMP 98.5; O2SAT 99
[2025-02-24 08:22] VITALS: BP 112/85; PULSE 77; RESP 17; TEMP 98.2; O2SAT 96
== END 2025-02-24 18:12 | disposition left against medical advice (07) | DRG 885 ==
LOC: EMS 22:38 → B2S 02-22 02:10 → B2X 02-22 10:23
PROVIDERS: ADMIT Psychiatry & Neurology Child & Adolescent Psychiatry; ATTEND Psychiatry & Neurology Child & Adolescent Psychiatry
PROC: GZ52ZZZ Individual Psychotherapy, Cognitive (ICD-10-PCS; principal; 2025-02-24)
PROC: GZ56ZZZ Individual Psychotherapy, Supportive (ICD-10-PCS; 2025-02-24)
PROC: GZ58ZZZ Individual Psychotherapy, Cognitive-Behavioral (ICD-10-PCS; 2025-02-24)
DX: F25.1 Schizoaffective disorder, depressive type (principal); R45.851 Suicidal ideations; E78.5 Hyperlipidemia, unspecified; F17.210 Nicotine dependence, cigarettes, uncomplicated; F19.10 Other psychoactive substance abuse, uncomplicated; Y90.9 Presence of alcohol in blood, level not specified; F41.9 Anxiety disorder, unspecified; F10.10 Alcohol abuse, uncomplicated; Z53.29 Procedure and treatment not carried out because of patient's decision for other reasons; Z20.822 Contact with and (suspected) exposure to COVID-19; Z88.8 Allergy status to other drugs, medicaments and biological substances
CPT/HCPCS: 80048; 80053; 80061; 80307; 81003; 83036; 84436; 84443; 85025; G0480